=== PATIENT | male | born 1965 | race Caucasian/White ===

== ENCOUNTER 2020-02-28 06:49 | Emergency (ER) | payer OTHER ==
[2020-02-28 07:37] LABS: Urine Blood 3+ (NEG); Urine Glucose NEGATIVE (NEG); Urine Protein 2+ (NEG); Urine Specific Gravity 1.025 (1.005-1.030); Urine pH 8.5 (5.0-7.0)
[2020-02-28] MEDS ORDERED: MEPERIDINE HCL 50 MG/ML ONE (07:38)
[2020-02-28 07:44] LABS: Absolute Lymphocytes (CBC) 1.6 K/uL (0.7-4.9); Basophils % 0.8 % (0-1.3); Hematocrit 43.7 % (39.6-49.0); Lymphocytes % 20.2 % (15.3-44.8); MPV 8.3 fL (7.6-11.3); RBC Red Blood Cell Count 5.03 M/uL (4.33-5.43)
[2020-02-28 08:07] LABS: Albumin 3.5 g/dL (3.4-5.0); Bilirubin Direct 0.2 mg/dL (0-0.2); Bilirubin Total 0.4 mg/dL (0.2-1.0); Potassium 4.2 mmol/L (3.5-5.1); Protein, Total 7.3 g/dL (6.4-8.2)
--- NOTE | 2020-02-28 08:21 | RAD REPORT ---
EXAM DESCRIPTION: CT - Stone Protocol - 02/28/2020 7:53 am CLINICAL HISTORY: Abdominal pain. COMPARISON: None. TECHNIQUE: Computed axial tomography of the abdomen pelvis was obtained without oral or IV contrast. Lack of IV and oral contrast limits evaluation of solid organs, bowel, and vessels. Coronal reformat diane images were obtained and reviewed. All CT scans are performed using dose optimization technique as appropriate and may include automated exposure control or mA/KV adjustment according to patient size. FINDINGS: Two low-density masses extend off of the right kidney. The largest measures 18 millimeters . Mild right hydronephrosis. 2 millimeter calculus distal right ureter. Left kidney grossly normal. Small inguinal hernias contain fat. Small left posteromedial diaphragmatic hernia contains fat The liver, spleen, pancreas and adrenals appear grossly normal There is no evidence of diverticulitis. The appendix appears normal IMPRESSION: 2 millimeter calculus distal right ureter resulting in mild right hydronephrosis
[2020-02-28 08:27] LABS: Urine Amorphous Sediment 1+ /HPF (NONE SEEN); Urine Bacteria <20 /HPF (NONE SEEN); Urine Culture Reflex Order NOT NEEDED; Urine RBC TNTC /HPF (NONE SEEN)
[2020-02-28] MEDS ORDERED: MORPHINE 4 MG/ML SYR ONE (08:37)
[2020-02-28] MEDS ORDERED: MAGNESIUM SULFATE 1 gm IVPB 1 GM/100 ML BAG IV ONE (08:38)
[2020-02-28] MEDS ORDERED: TAMSULOSIN 0.4 MG SR CAP ONE (08:38)
[2020-02-28] MEDS ORDERED: KETOROLAC 30 MG/ML INJ ONE (08:38)
[2020-02-28] MEDS ORDERED: ONDANSETRON 4 MG/2 ML VIAL ONE (08:44)
--- NOTE | 2020-02-28 09:53 | ER ---
Nurse's Notes [facility] Name: Amando Paez Age: 55 yrs Sex: Male : 1965 Arrival Date: 02/28/2020 Time: 06:53 Bed 17 Private MD: Diagnosis: Ureterolithiasis Presentation: 02/27 07:15 Chief complaint: Patient states: woke up around 0300 with the urge to urinate or sv defecate but was not able to. Has been having right flank pain since with still the urge to urinate. Ibuprofen taken at 2300 and Aleve taken at 0600. Coronavirus screen: Client denies travel out of the [place] in the last 14 days. At this time, the client does not indicate any symptoms associated with coronavirus-19. Ebola Screen: No symptoms or risks identified at this time. Initial Sepsis Screen: Does the patient meet any 2 criteria? No. Patient's initial sepsis screen is negative. Does the patient have a suspected source of infection? No. Patient's initial sepsis screen is negative. Risk Assessment: Do you want to hurt yourself or someone else? Patient reports no desire to harm self or others. Onset of symptoms was February 28, 2020. 07:15 Method Of Arrival: Ambulatory sv 07:15 Acuity: BUCK 3 sv Triage Assessment: 07:15 General: Appears in no apparent distress. uncomfortable, obese, well groomed, well sv developed, Behavior is cooperative, appropriate for age, restless. Pain: Complains of pain in right mid back Pain currently is 5 out of 10 on a pain scale. Pain began 4 hours ago. Is continuous, Alleviated by nothing. Neuro: Level of Consciousness is awake, alert, obeys commands, Oriented to person, place, time, situation, Moves all extremities. Full function Gait is steady, Speech is normal. Cardiovascular: Patient's skin is warm and dry. Respiratory: Respiratory effort is even, unlabored, Respiratory pattern is regular, symmetrical. : Reports burning with urination, urgency. Derm: Skin is pink, warm \T\ dry. Historical: - Allergies: 07:26 No Known Allergies; sv - PMHx: 07:26 Diabetes - NIDDM; sv - PSHx: 07:45 Umbilical hernia; sv - Immunization history:: Adult Immunizations up to date. - Social history:: Smoking status: . - Family history:: not pertinent. - Hospitalizations: : No recent hospitalization is reported. Screenin:15 Abuse screen: Denies threats or abuse. Denies injuries from another. Nutritional sv screening: No deficits noted. Tuberculosis screening: No symptoms or risk factors identified. Fall Risk None identified. Assessment: 08:27 Reassessment: provider at bedside at this time. tw2 08:30 Reassessment: No changes from previously documented assessment. Patient and/or family tw2 updated on plan of care and expected duration. Pain level reassessed. Patient is alert, oriented x 3, equal unlabored respirations, skin warm/dry/pink. Patient states symptoms have not improved. 08:31 Reassessment: Patient appears in no apparent distress at this time. No changes from sv previously documented assessment. Patient and/or family updated on plan of care and expected duration. Pain level reassessed. Patient is alert, oriented x 3, equal unlabored respirations, skin warm/dry/pink. Patient states symptoms have not improved. 08:55 Reassessment: Patient appears in no apparent distress at this time. Patient and/or sv family updated on plan of care and expected duration. Pain level reassessed. Patient is alert, oriented x 3, equal unlabored respirations, skin warm/dry/pink. Patient states feeling better. Patient states symptoms have improved. 09:36 Reassessment: Patient appears in no apparent distress at this time. Patient and/or sv family updated on plan of care and expected duration. Pain level reassessed. Patient is alert, oriented x 3, equal unlabored respirations, skin warm/dry/pink. 10:12 Reassessment: Patient appears in no apparent distress at this time. Patient and/or sv family updated on plan of care and expected duration. Pain level reassessed. Patient is alert, oriented x 3, equal unlabored respirations, skin warm/dry/pink. Patient states feeling better. Patient states symptoms have improved. Patient states symptoms have not improved. Vital Signs: 07:24 Pulse 78 MON; Resp 18; Temp 97.6(A); Pulse Ox 98% on R/A; Weight 140.61 kg; Height 5 ds4 ft. 9 in. (175.26 cm); 08:29 BP 123 / 76; Pulse 71; Resp 18; Pulse Ox 99% on R/A; tw2 08:55 Pain 2/10; sv 09:48 BP 121 / 60; Pulse 66; Resp 18; Pulse Ox 96% ; sv 07:24 Body Mass Index 45.78 (140.61 kg, 175.26 cm) ds4 ED Course: 06:53 Patient arrived in ED. es 07:02 Juan Lyons MD is Attending Physician. rn 07:02 Patient's name was called from ER lobby. No response. aa5 07:10 Patient's name was called from ER lobby. No response. aa5 07:15 Aaliyah Vidal, VIOLETTA is Primary Nurse. sv 07:15 Patient has correct armband on for positive identification. Bed in low position. Call sv light in reach. Pulse ox on. NIBP on. Door closed. Head of bed elevated. 07:15 Arm band placed on Patient placed in an exam room, on a stretcher. sv 07:25 Triage completed. sv 07:26 Urine Dipstick--Ancillary (enter results) Sent. sv 07:26 Urine Microscopic Only Sent. ds4 07:26 Urine Culture Sent. ds4 07:[address] via wheelchair. sv 07:54 CT Stone Protocol In Process Unspecified. EDMS 07:[address] sv 07:59 Awaiting lab results, Awaiting radiology results. Awaiting re-evaluation by ER provider.sv 10:13 No provider procedures requiring assistance completed. IV discontinued, intact, sv bleeding controlled, No redness/swelling at site. Pressure dressing applied. Administered Medications: 07:31 Drug: Demerol 25 mg {Note: rass3.} Route: IVP; Site: right antecubital; sv 08:31 Follow up: Response: No adverse reaction; No change in condition; Pain is unchanged, sv physician notified; RASS: Very agitated (+3) 08:31 Drug: morphine 4 mg {Note: rass3.} Route: IVP; Site: right antecubital; sv 08:55 Follow up: Pain 2/10 Adult; Response: No adverse reaction; Marked relief of symptoms; sv Pain is decreased; RASS: Alert and Calm (0) 08:33 Drug: TORadol - Ketorolac 15 mg Route: IVP; Site: right antecubital; sv 08:55 Follow up: Response: No adverse reaction; Marked relief of symptoms; Pain is decreased sv 08:35 Drug: Zofran (Ondansetron) 4 mg Route: IVP; Site: right antecubital; sv 08:55 Follow up: Response: No adverse reaction sv 08:37 Drug: Magnesium Sulfate 1 grams Route: IVPB; Infused Over: 1 hrs; Site: right sv antecubital; 09:36 Follow up: Response: No adverse reaction; IV Status: Completed infusion tw2 08:55 Drug: Flomax 0.4 mg Route: PO; sv 09:09 Follow up: Response: No adverse reaction sv Outcome: 09:53 Discharge ordered by . rn 10:13 Discharged to home ambulatory. sv 10:13 Condition: stable 10:13 Condition: improved 10:13 Discharge instructions given to patient, Instructed on discharge instructions, follow up and referral plans. no drinking with medication, no driving heavy equipment, medication usage, increase hydration Demonstrated understanding of instructions, follow-up care, medications, Prescriptions given X 4. 10:13 Patient left the ED. sv Signatures: Dispatcher [employer] Aaliyah Bhat RN RN sv Salyer, Edna es Nieto, Roman, MD MD rn Calderon, Audri, RN RN Chevy Larsen ds4 Lita Ng RN RN tw2 Corrections: (The following items were deleted from the chart) 07:13 07:02 Patient's name was called from DAYNA potter. No response. aa5 aa5 07:45 07:26 PSHx: None; sv sv
--- NOTE | 2020-02-28 09:53 | EDPHYS ---
Physician Documentation [facility] Name: Amando Paez Age: 55 yrs Sex: Male : 1965 Arrival Date: 02/28/2020 Time: 06:53 Bed 17 Private MD: ED Physician Juan Lyons HPI: 02/27 07:38 This 55 yrs old Male presents to ER via Ambulatory with complaints of UTI, buttermaker continuous churn KIDNEY INFECTION. 07:38 The patient complains of pain in the right mid back. The pain radiates to the abdomen. rn Onset: The symptoms/episode began/occurred last night. Modifying factors: The symptoms are alleviated by nothing. the symptoms are aggravated by nothing. Severity of pain: At its worst the pain was moderate in the emergency department the pain is unchanged. The patient has not experienced similar symptoms in the past. Reports right flank pain with dysuria and urinary frequency since last night. No trauma. No hematuria. No fever but feels cold. Reports glucose has been ok. No current abd pain. No cough/sob. . Historical: - Allergies: 07:26 No Known Allergies; sv - PMHx: 07:26 Diabetes - NIDDM; sv - PSHx: 07:45 Umbilical hernia; sv - Immunization history:: Adult Immunizations up to date. - Social history:: Smoking status: . - Family history:: not pertinent. - Hospitalizations: : No recent hospitalization is reported. ROS: 07:38 Constitutional: Negative for weight loss Eyes: Negative for injury, pain, redness, and hand turner, Neck: Negative for injury, pain, and swelling, Cardiovascular: Negative for chest pain, palpitations, and edema, Respiratory: Negative for shortness of breath, cough, wheezing, and pleuritic chest pain, Abdomen/GI: Negative for abdominal pain, vomiting, diarrhea, and constipation, : + dysuria and increased urinary frequency MS/Extremity: Negative for injury and deformity, Skin: Negative for injury, rash, and discoloration, Neuro: Negative for headache, numbness, tingling, and seizure. Exam: 07:38 Constitutional: This is a well developed, well nourished patient who is awake, alert, rn appears uncomfortable Head/Face: Normocephalic, atraumatic. Cardiovascular: Regular rate and rhythm. No pulse deficits. Respiratory: No increased work of breathing, no retractions or nasal flaring. Abdomen/GI: soft, non-tender Back: No spinal tenderness. No costovertebral tenderness. Full range of motion. Skin: Warm, dry MS/ Extremity: Pulses equal, no cyanosis. Neurovascular intact. Full, normal range of motion. Equal circumference. Neuro: Awake and alert, GCS 15, oriented to person, place, time, and situation. Cranial nerves II-XII grossly intact. Motor strength 5/5 in all extremities. Sensory grossly intact. Vital Signs: 07:24 Pulse 78 MON; Resp 18; Temp 97.6(A); Pulse Ox 98% on R/A; Weight 140.61 kg; Height 5 ds4 ft. 9 in. (175.26 cm); 08:29 BP 123 / 76; Pulse 71; Resp 18; Pulse Ox 99% on R/A; tw2 08:55 Pain 2/10; sv 09:48 BP 121 / 60; Pulse 66; Resp 18; Pulse Ox 96% ; sv 07:24 Body Mass Index 45.78 (140.61 kg, 175.26 cm) ds4 MDM: 07:02 Patient medically screened. rn 08:29 Differential diagnosis: nephrolithiasis, pyelonephritis, UTI. Data reviewed: vital rn signs, nurses notes, lab test result(s), radiologic studies, CT scan, and as a result, I will continue to observe the patient. Counseling: I had a detailed discussion with the patient and/or guardian regarding: the historical points, exam findings, and any diagnostic results supporting the discharge/admit diagnosis, lab results, radiology results. Response to treatment: the patient's symptoms have mildly improved after treatment. ED course: CT shows distal 2mm ureteral stone, will medicate with stone specific therapy and continue to observe in ER, anticipate DC home. . 09:07 Response to treatment: the patient's symptoms have markedly improved after treatment. rn 09:52 Special discussion: I discussed with the patient/guardian in detail that at this point rn there is no indication for admission to the hospital. It is understood, however, that if the symptoms persist or worsen the patient needs to return immediately for re-evaluation. ED course: Pt sleeping, when awaken, states feels much better. . 02/27 07:24 Order name: Basic Metabolic Panel; Complete Time: 08:22 rn 02/27 07:24 Order name: CBC with Diff; Complete Time: 08:04 rn 02/27 07:24 Order name: Hepatic Function; Complete Time: 08:22 rn 02/27 07:24 Order name: Lipase; Complete Time: 08:22 rn 02/27 07:24 Order name: Urine Culture rn 02/27 07:24 Order name: Urine Microscopic Only; Complete Time: 08:28 rn 02/27 07:24 Order name: CT Stone Protocol; Complete Time: 08:22 rn 02/27 07:25 Order name: Urine Dipstick--Ancillary (enter results); Complete Time: 08:04 em1 02/27 07:24 Order name: IV Saline Lock; Complete Time: 07:39 rn 02/27 07:24 Order name: Labs collected and sent; Complete Time: 07:39 rn 02/27 07:24 Order name: Urine Dipstick-Ancillary (obtain specimen); Complete Time: 07:24 rn Administered Medications: 07:31 Drug: Demerol 25 mg {Note: rass3.} Route: IVP; Site: right antecubital; sv 08:31 Follow up: Response: No adverse reaction; No change in condition; Pain is unchanged, sv physician notified; RASS: Very agitated (+3) 08:31 Drug: morphine 4 mg {Note: rass3.} Route: IVP; Site: right antecubital; sv 08:55 Follow up: Pain 2/10 Adult; Response: No adverse reaction; Marked relief of symptoms; sv Pain is decreased; RASS: Alert and Calm (0) 08:33 Drug: TORadol - Ketorolac 15 mg Route: IVP; Site: right antecubital; sv 08:55 Follow up: Response: No adverse reaction; Marked relief of symptoms; Pain is decreased sv 08:35 Drug: Zofran (Ondansetron) 4 mg Route: IVP; Site: right antecubital; sv 08:55 Follow up: Response: No adverse reaction sv 08:37 Drug: Magnesium Sulfate 1 grams Route: IVPB; Infused Over: 1 hrs; Site: right sv antecubital; 09:36 Follow up: Response: No adverse reaction; IV Status: Completed infusion tw2 08:55 Drug: Flomax 0.4 mg Route: PO; sv 09:09 Follow up: Response: No adverse reaction sv Disposition: 02/28/20 09:53 Discharged to Home. Impression: Ureterolithiasis. - Condition is Stable. - Discharge Instructions: Kidney Stones, Dietary Guidelines to Help Prevent Kidney Stones. - Prescriptions for Zofran ODT 4 mg Oral tablet,disintegrating - place 1 tablet by TRANSLINGUAL route every 8 hours As needed; 20 tablet. Ibuprofen 800 mg Oral Tablet - take 1 tablet by ORAL route every 12 hours As needed take with food; 20 tablet. Tylenol- Codeine #3 300-30 mg Oral Tablet - take 1 tablet by ORAL route every 6 hours As needed; 20 tablet. Flomax 0.4 mg Oral Capsule, Sust. Release 24 hr - take 1 capsule by ORAL route once daily Stop taking once you feel that you have passed the kidney stone, can cause low blood pressure and dizziness; 10 capsule. - Medication Reconciliation Form, Thank You Letter, Antibiotic Education, Prescription Opioid Use form. - Follow up: Private Physician; When: As needed; Reason: Recheck today's complaints, Re-evaluation by your physician. - Problem is new. - Symptoms have improved. Signatures: Dispatcher [employer] Aaliyah Bhat RN RN sv Juan Lyons MD MD rn Wise, Tara RN tw2 Corrections: (The following items were deleted from the chart) 07:45 07:26 PSHx: None; sv sv 10:13 09:53 02/28/2020 09:53 Discharged to Home. Impression: Ureterolithiasis. Condition is sv Stable. Discharge Instructions: Kidney Stones, Dietary Guidelines to Help Prevent Kidney Stones. Prescriptions for Zofran ODT 4 mg Oral tablet,disintegrating - place 1 tablet by TRANSLINGUAL route every 8 hours As needed; 20 tablet, Ibuprofen 800 mg Oral Tablet - take 1 tablet by ORAL route every 12 hours As needed take with food; 20 tablet, Tylenol-Codeine #3 300-30 mg Oral Tablet - take 1 tablet by ORAL route every 6 hours As needed; 20 tablet, Flomax 0.4 mg Oral Capsule, Sust. Release 24 hr - take 1 capsule by ORAL route once daily 1/2 hour following the same meal each day; 10 capsule. and Forms are Medication Reconciliation Form, Thank You Letter, Antibiotic Education, Prescription Opioid Use. Follow up: Private Physician; When: As needed; Reason: Recheck today's complaints, Re-evaluation by your physician. Problem is new. Symptoms have improved. rn
[2020-03-03 23:02] VITALS: TEMP 97.6
[2020-03-03 23:05] VITALS: BP 121/60; O2SAT 96
== END 2020-02-28 10:13 | disposition home or self-care (01) ==
LOC: ER 06:49
DX: N20.1 Calculus of ureter (principal); E11.9 Type 2 diabetes mellitus without complications
CPT/HCPCS: 96365; 87088; 85025; 87086; 80048; 36415; 80076; 83690; 76377; 74176; 96375; 99284; J3475; J2175; J2405; 81003; 81015